=== PATIENT | female | born 1930 | race Caucasian/White ===

== ENCOUNTER 2017-07-08 00:20 | Inpatient (IN) | payer OTHER ==
--- NOTE | 2017-07-08 00:30 | EDPHY ---
H & P Stated Complaint: fall from standing HPI/ROS: HPI The patient presents with a fall which occurred about 45 minutes prior to arrival at her assisted living facility. The patient had an unwitnessed fall, she does not recall the details of it. She does have dementia. She was found by people at the assisted living sitting on the ground. She was complaining of left 5th digit and left hip pain. She was nonambulatory on the scene. She was brought in by the paramedics have placed an IV. She has a most form with her stating that she is comfort measures only. REVIEW OF SYSTEMS Constitutional: No fever, no chills. Eyes: No discharge. ENT: No sore throat. Cardiovascular: No chest pain, no palpitations. Respiratory: No cough, no shortness of breath. Gastrointestinal: No abdominal pain, no vomiting. Genitourinary: No hematuria. Musculoskeletal: No back pain. Skin: No rashes. Neurological: No headache. PMHx: Dementia, GERD, history of syncope Soc Hx: Resides at an assisted living facility PHYSICAL General Appearance: Alert, no distress Eyes: Pupils equal and round no pallor or injection ENT, Mouth: Mucous membranes moist Respiratory: There are no retractions, lungs are clear to auscultation Cardiovascular: Regular rate and rhythm Gastrointestinal: Abdomen is soft and non-tender, no masses, bowel sounds normal Neurological: A&O, moves all extremities Skin: Warm and dry, no rashes Musculoskeletal: Neck is supple non tender Extremities: Left 5th digit is ecchymotic and tender to palpation with no overlying abrasions or lacerations; there is tenderness to her left hip with limited range of motion secondary to pain, the leg is externally rotated and foreshortened Psychiatric: Patient is oriented X 3, there is no agitation Source: Patient Exam Limitations: No limitations - Personal History Current Tetanus/Diphtheria Vaccine: Unsure Current Tetanus Diphtheria and Acellular Pertussis (TDAP): Unsure Tetanus Vaccine Date: 2009 - Medical/Surgical History Hx Asthma: No Hx Chronic Respiratory Disease: No Hx Diabetes: No Hx Cardiac Disease: No Hx Renal Disease: No Hx Cirrhosis: No Hx Alcoholism: No Hx HIV/AIDS: No Hx Splenectomy or Spleen Trauma: No Other PMH: dementia osteoporosis, glaucoma, syncope GERD,. UTI - Social History Smoking Status: Never smoked Constitutional: Initial Vital Signs Temperature (C) 36.3 C 07/08/17 00:21 Heart Rate 85 07/08/17 00:21 Respiratory Rate 16 07/08/17 00:21 Blood Pressure 181/88 H 07/08/17 00:21 O2 Sat (%) 89 L 07/08/17 00:21 O2 Delivery Mode Room Air O2 (L/minute) 2 Allergies/Adverse Reactions: bacitracin [Bacitracin] Allergy (Verified 08/15/14 12:06) Sulfa (Sulfonamide Antibiotics) Allergy (Verified 08/15/14 12:06) Home Medications: Medication Instructions Recorded Timolol 0.5% [TIMOPTIC 0.5% (*)] 1 drops EACHEYE DAILY 08/15/14 Acetaminophen [Tylenol ES 500 mg 1,000 mg PO TID #0 tab 08/19/14 (*)] Enoxaparin [Lovenox 40 MG (*)] 40 mg SC DAILY #10 syr 08/19/14 Magnesium Hydroxide [Milk of 30 ml PO DAILY PRN #0 ml 08/19/14 Magnesia (*)] Melatonin [Melatonin 3 MG (*)] 3 mg PO HS PRN #0 tab 08/19/14 Ondansetron Odt [Zofran Odt 4 mg 4 mg PO Q4 PRN #0 tab 08/19/14 (*)] Pantoprazole Sodium [Protonix 40mg 40 mg PO DAILY #0 tab 08/19/14 (*)] Polyethylene Glycol 3350 [Miralax 17 gm PO DAILY PRN #0 pkt 08/19/14 17 gm (*)] Sennosides/Docusate Sodium 1 - 2 tab PO BID #0 tab 08/19/14 [Senokot-S] oxyCODONE IR [Oxycodone Ir (*)] 2.5 mg PO Q3 PRN #0 tab 08/19/14 Medical Decision Making - Diagnostics Imaging Results: Left hip x-ray demonstrates femoral neck fracture, interpreted by me, radiology interpretation is pending. Left hand x-ray demonstrates 5th middle phalanx fracture involving the PIP, interpreted by me, radiology interpretation is pending. Left wrist x-ray demonstrates no obvious fracture dislocation, interpreted by me , radiology interpretation is pending. Procedures: Fascia iliaca block: A complete neurovascular exam was performed and the patient has 5/5 flexion of her left hip and sensation intact to light touch throughout her leg. The risks and benefits of a nerve block were discussed with the patient and her daughter who is at the bedside and they agree to proceed. Using the linear probe of the ultrasound machine the femoral vessels and femoral nerve relocated approximately 1 cm distal to the left inguinal ligament. Using a 27 gauge needle, a skin wheal was raised using 1% of lidocaine with epinephrine. The area was then prepped and draped in sterile fashion. Using a 22 gauge needle, total of 20 mL of 1% lidocaine without epinephrine was injected approximately 1 cm lateral to the femoral nerve in the fascial layer below the fascia laverne and fascia iliaca. Ultrasound guidance was used throughout the duration of the procedure. The patient tolerated the procedure well. She had no immediate complications. She had improvement in her pain approximately 10 minutes after the procedure. The area was marked with a marking pen. SPLINT Procedure: Splint placement. A ortho glass ulnar gutter and 5th phalanx splint was applied to the left upper extremity by the tech. After application of the splint I returned and re- examined the patient. The splint was adequately immobilizing the joint and distal to the splint the patient's circulation and sensation was intact. Differential Diagnosis: This is an 87-year-old female who is brought in by ambulance from assisted living facility with past medical history of dementia, hypertension, GERD, syncope who is here after a fall which occurred about 45 minutes ago. She does not all the details of this which is likely related to her dementia. She does have a prior history of syncope which caused a right hip fracture. On exam, her left leg is externally rotated and shortened, her left 5th digit is ecchymotic. In the emergency department, x-rays were obtained which did reveal of femoral neck fracture and a 5th middle phalanx fracture. The patient had ongoing wrist pain and thus a splint was placed to immobilize her 5th digit and wrist. Ice packs were placed. She was given Tylenol and fentanyl. She had ongoing pain despite these medications, her saturations remained at approximately 90%. I consulted with Orthopedics and I spoke with Malorie the physician [employer] assistant football coach for Dr. Hampton. We agree that the patient will be admitted to the hospitalist service and be NPO at midnight. We discussed femoral nerve block and she agrees. I have discussed the diagnosis and treatment plan with the patient and her daughter who is at the bedside. Basic labs were checked and were relatively unremarkable. We have ordered a bed for the patient in the hospital. I consulted with the hospitalist Dr. Su and he will admit the patient. - Data Points Laboratory Results: Laboratory Results 07/08/17 02:10 07/08/17 02:10 07/08/17 07/08/17 07/08/17 02:10 02:10 02:10 WBC 9.41 10^3/uL 10^3/uL (3.80-9.50) RBC 3.33 10^6/uL L 10^6/uL (4.18-5.33) Hgb 10.7 g/dL L g/dL (12.6-16.3) Hct 32.6 % L % (38.0-47.0) MCV 97.9 fL fL (81.5-99.8) MCH 32.1 pg pg (27.9-34.1) MCHC 32.8 g/dL g/dL (32.4-36.7) RDW 13.0 % % (11.5-15.2) Plt Count 201 10^3/uL 10^3/uL (150-400) MPV 10.7 fL fL (8.7-11.7) Neut % (Auto) 79.8 % H % (39.3-74.2) Lymph % (Auto) 13.5 % L % (15.0-45.0) [place] % (Auto) 5.0 % % (4.5-13.0) Eos % (Auto) 1.0 % % (0.6-7.6) Baso % (Auto) 0.1 % L % (0.3-1.7) Nucleat RBC Rel Count 0.0 % % (0.0-0.2) Absolute Neuts (auto) 7.51 10^3/uL H 10^3/uL (1.70-6.50) Absolute Lymphs (auto) 1.27 10^3/uL 10^3/uL (1.00-3.00) Absolute Monos (auto) 0.47 10^3/uL 10^3/uL (0.30-0.80) Absolute Eos (auto) 0.09 10^3/uL 10^3/uL (0.03-0.40) Absolute Basos (auto) 0.01 10^3/uL L 10^3/uL (0.02-0.10) Absolute Nucleated RBC 0.00 10^3/uL 10^3/uL (0-0.01) Immature Gran % 0.6 % % (0.0-1.1) Immature Gran # 0.06 10^3/uL 10^3/uL (0.00-0.10) PT 12.7 SEC SEC (12.0-15.0) INR 0.96 (0.83-1.16) APTT 30.9 SEC SEC (23.0-38.0) Sodium 140 mEq/L mEq/L (134-144) Potassium 4.1 mEq/L mEq/L (3.5-5.2) Chloride 108 mEq/L mEq/L (97-110) Carbon Dioxide 25 mEq/l mEq/l (22-31) Anion Gap 7 mEq/L L mEq/L (8-16) BUN 24 mg/dL H mg/dL (7-23) Creatinine 0.7 mg/dL mg/dL (0.6-1.0) Estimated GFR > 60 Glucose 112 mg/dL H mg/dL (70-100) Calcium 9.2 mg/dL mg/dL (8.5-10.4) Total Bilirubin 0.5 mg/dL mg/dL (0.1-1.4) AST 34 IU/L IU/L (14-46) ALT 63 IU/L H IU/L (9-52) Alkaline Phosphatase 99 IU/L IU/L (38-126) Total Protein 6.2 g/dL L g/dL (6.3-8.2) Albumin 3.4 g/dL L g/dL (3.5-5.0) Medications Given: Sodium Chloride (Ns) 1,000 mls @ 100 mls/hr IV CONT ROBERTO Stop: 01/04/18 03:14 Last Admin: 07/08/17 04:50 Dose: 1,000 mls Morphine Sulfate (Morphine) 1 - 2 mg IVP Q1HR PRN PRN Reason: Pain, Severe Unable to Take PO Stop: 07/18/17 03:14 Last Admin: 07/08/17 04:49 Dose: 1 mg Discontinued Medications Acetaminophen (Tylenol) 1,000 mg PO EDNOW ONE Stop: 07/08/17 02:08 Last Admin: 07/08/17 02:33 Dose: 1,000 mg Fentanyl (Sublimaze) 50 mcg IVP EDNOW ONE Stop: 07/08/17 01:37 Last Admin: 07/08/17 01:51 Dose: 50 mcg Departure - Departure Disposition: [facility] Inpatient Acute Condition: Fair
[2017-07-08] MEDS ORDERED: fentaNYL 100 MCG/2 ML INJ IVP ONE (01:36)
[2017-07-08] MEDS ORDERED: ACETAMINOPHEN 500 MG TAB PO ONE (02:07)
[2017-07-08 02:18] LABS: % IMMATURE GRANULYOCYTES 0.6 % (0.0-1.1); ABSOLUTE IMMATURE GRANULOCYTES 0.06 10^3/uL (0.00-0.10); ADD DIFF? NO; ADD MORPH? NO; ADD SCAN? NO; ATYPICAL LYMPHOCYTE FLAG 0 (0-99); FRAGMENT RBC FLAG 0 (0-99); HEMATOCRIT 32.6 % (38.0-47.0); HEMOGLOBIN 10.7 g/dL (12.6-16.3); LEFT SHIFT FLG 0 (0-99); LIPEMIA HEMOLYSIS FLAG 80 (0-99); MEAN CELL HEMOGLOBIN 32.1 pg (27.9-34.1); MEAN CELL HEMOGLOBIN CONCENTR. 32.8 g/dL (32.4-36.7); MEAN CELL VOLUME 97.9 fL (81.5-99.8); MEAN PLATELET VOLUME 10.7 fL (8.7-11.7); PLATELET CLUMPS FLAG 0 (0-99); PLATELET COUNT 201 10^3/uL (150-400); RED BLOOD CELL COUNT 3.33 10^6/uL (4.18-5.33)
[2017-07-08 02:27] LABS: INR 0.96 (0.83-1.16); PROTIME(PATIENT) 12.7 SEC (12.0-15.0)
[2017-07-08 02:28] LABS: APTT 30.9 SEC (23.0-38.0)
[2017-07-08 02:44] LABS: ALANINE AMINOTRANSFERASE 63 IU/L (9-52); ALBUMIN 3.4 g/dL (3.5-5.0); ALKALINE PHOSPHATASE 99 IU/L (38-126); ANION GAP 7 mEq/L (8-16); ASPARTATE AMINOTRANSFERASE 34 IU/L (14-46); BILIRUBIN,TOTAL 0.5 mg/dL (0.1-1.4); CALCIUM 9.2 mg/dL (8.5-10.4); CARBON DIOXIDE 25 mEq/l (22-31); CHLORIDE 108 mEq/L (97-110); CREATININE 0.7 mg/dL (0.6-1.0); GLOMERULAR FILTRATION RATE > 60; GLUCOSE 112 mg/dL (70-100); POTASSIUM 4.1 mEq/L (3.5-5.2); SODIUM 140 mEq/L (134-144); TOTAL PROTEIN 6.2 g/dL (6.3-8.2)
[2017-07-08] MEDS ORDERED: ACETAMINOPHEN 325 MG TAB PO PRN (03:15)
[2017-07-08] MEDS ORDERED: NS 1,000 ML IV SCH (03:15)
[2017-07-08] MEDS ORDERED: ONDANSETRON 4 MG/2 ML VIAL IVP PRN (03:15)
[2017-07-08] MEDS ORDERED: ONDANSETRON DISINTEGRATING 4 MG TAB PO PRN (03:15)
[2017-07-08] MEDS ORDERED: oxyCODONE IR 5 MG TAB PO PRN (03:15)
--- NOTE | 2017-07-08 03:36 | PDGENHP ---
History and Physical - Chief Complaint Fall, hip fracture - History of Present Illness 87 yo F w/ hx of dementia presents from [facility] after a fall. Patient was found by caregiver on the floor unable to recall what happened. She was complaining of L hand pain and L hip pain so was brought to the ED. The patient is A&Ox1 at baseline and has transitioned to comfort measures only. Her daughter was at bedside who confirmed this approach. Imaging in the ED revealed L hand fracture and L hip fracture. Per conversation with the daughter, they are interested in discussing some surgical options as patient is very ambulatory and very much enjoys that part of her day. History Information - Allergies/Home Medication List Allergies/Adverse Reactions: bacitracin [Bacitracin] Allergy (Verified 08/15/14 12:06) Sulfa (Sulfonamide Antibiotics) Allergy (Verified 08/15/14 12:06) Home Medications: Timolol 0.5% [TIMOPTIC 0.5% (*)] 1 drops EACHEYE DAILY 08/15/14 [Last Taken Unknown] I have personally reviewed and updated: family history, medical history - Past Medical History dementia - Surgical History Additional surgical history: R hip replacement - Family History Additional family history: Asked, unable to provide - Social History Smoking Status: Never smoked Review of Systems Review of Systems: ROS: 10pt was reviewed & negative except for what was stated in HPI & below Physical Exam Physical Exam: Temp Pulse Resp BP Pulse Ox 36.3 C 85 18 169/80 H 97 07/08/17 00:21 07/08/17 01:34 07/08/17 01:34 07/08/17 01:34 07/08/17 02:42 Constitutional: no apparent distress, chronically ill appearing Eyes: PERRL, EOMI Ears, Nose, Mouth, Throat: moist mucous membranes, no oral mucosal ulcers Cardiovascular: regular rate and rhythym, no murmur, rub, or gallop, edema (1+ b /l PEGGY) Respiratory: no respiratory distress, no rales or rhonchi Gastrointestinal: normoactive bowel sounds, soft, non-tender abdomen Skin: warm, normal color Musculoskeletal: other (LUE wrapped in MILTON bandage, L hip w/ no obvious deformity) Neurologic: sensation intact bilaterally, other (A&Ox1) Psychiatric: interacting appropriately, not anxious Lab Data & Imaging Review 07/08/17 02:10 07/08/17 02:10 WBC 9.41 10^3/uL (3.80-9.50) 07/08/17 02:10 RBC 3.33 10^6/uL (4.18-5.33) L 07/08/17 02:10 Hgb 10.7 g/dL (12.6-16.3) L 07/08/17 02:10 Hct 32.6 % (38.0-47.0) L 07/08/17 02:10 MCV 97.9 fL (81.5-99.8) 07/08/17 02:10 MCH 32.1 pg (27.9-34.1) 07/08/17 02:10 MCHC 32.8 g/dL (32.4-36.7) 07/08/17 02:10 RDW 13.0 % (11.5-15.2) 07/08/17 02:10 Plt Count 201 10^3/uL (150-400) 07/08/17 02:10 MPV 10.7 fL (8.7-11.7) 07/08/17 02:10 Neut % (Auto) 79.8 % (39.3-74.2) H 07/08/17 02:10 Lymph % (Auto) 13.5 % (15.0-45.0) L 07/08/17 02:10 [place] % (Auto) 5.0 % (4.5-13.0) 07/08/17 02:10 Eos % (Auto) 1.0 % (0.6-7.6) 07/08/17 02:10 Baso % (Auto) 0.1 % (0.3-1.7) L 07/08/17 02:10 Nucleat RBC Rel Count 0.0 % (0.0-0.2) 07/08/17 02:10 Absolute Neuts (auto) 7.51 10^3/uL (1.70-6.50) H 07/08/17 02:10 Absolute Lymphs (auto) 1.27 10^3/uL (1.00-3.00) 07/08/17 02:10 Absolute Monos (auto) 0.47 10^3/uL (0.30-0.80) 07/08/17 02:10 Absolute Eos (auto) 0.09 10^3/uL (0.03-0.40) 07/08/17 02:10 Absolute Basos (auto) 0.01 10^3/uL (0.02-0.10) L 07/08/17 02:10 Absolute Nucleated RBC 0.00 10^3/uL (0-0.01) 07/08/17 02:10 Immature Gran % 0.6 % (0.0-1.1) 07/08/17 02:10 Immature Gran # 0.06 10^3/uL (0.00-0.10) 07/08/17 02:10 PT 12.7 SEC (12.0-15.0) 07/08/17 02:10 INR 0.96 (0.83-1.16) 07/08/17 02:10 APTT 30.9 SEC (23.0-38.0) 07/08/17 02:10 Sodium 140 mEq/L (134-144) 07/08/17 02:10 Potassium 4.1 mEq/L (3.5-5.2) 07/08/17 02:10 Chloride 108 mEq/L (97-110) 07/08/17 02:10 Carbon Dioxide 25 mEq/l (22-31) 07/08/17 02:10 Anion Gap 7 mEq/L (8-16) L 07/08/17 02:10 BUN 24 mg/dL (7-23) H 07/08/17 02:10 Creatinine 0.7 mg/dL (0.6-1.0) 07/08/17 02:10 Estimated GFR > 60 07/08/17 02:10 Glucose 112 mg/dL (70-100) H 07/08/17 02:10 Calcium 9.2 mg/dL (8.5-10.4) 07/08/17 02:10 Total Bilirubin 0.5 mg/dL (0.1-1.4) 07/08/17 02:10 AST 34 IU/L (14-46) 07/08/17 02:10 ALT 63 IU/L (9-52) H 07/08/17 02:10 Alkaline Phosphatase 99 IU/L (38-126) 07/08/17 02:10 Total Protein 6.2 g/dL (6.3-8.2) L 07/08/17 02:10 Albumin 3.4 g/dL (3.5-5.0) L 07/08/17 02:10 Imaging Review: XR w/ L femoral neck fx and L 5th digit fx. Assessment & Plan Assessment: 87 yo F w/ dementia presents after fall and found to have hip fx. Plan: 1. L femoral neck fx - 2/2 likely mechanical fall, patient unable to recall events in setting of advanced dementia. Despite comfort measure only strategy, daughter interested in discussing surgical options to retain ability to ambulate. - S/p nerve block in ED - Oxycodone, morphine for pain control - Orthopedics to see in the morning, maintain NPO 2. GOC - Patient and family have elected for comfort measures only, will not address other medical problems at this time. Diet - NPO Code - DNR Ppx - SCDs Dispo - Admit to observation status
[2017-07-08 08:22] LABS: % IMMATURE GRANULYOCYTES 0.4 % (0.0-1.1); ABSOLUTE IMMATURE GRANULOCYTES 0.06 10^3/uL (0.00-0.10); ADD DIFF? NO; ADD MORPH? NO; ADD SCAN? NO; ATYPICAL LYMPHOCYTE FLAG 0 (0-99); FRAGMENT RBC FLAG 0 (0-99); HEMATOCRIT 34.2 % (38.0-47.0); HEMOGLOBIN 11.2 g/dL (12.6-16.3); LEFT SHIFT FLG 0 (0-99); LIPEMIA HEMOLYSIS FLAG 80 (0-99); MEAN CELL HEMOGLOBIN 31.7 pg (27.9-34.1); MEAN CELL HEMOGLOBIN CONCENTR. 32.7 g/dL (32.4-36.7); MEAN CELL VOLUME 96.9 fL (81.5-99.8); MEAN PLATELET VOLUME 10.9 fL (8.7-11.7); PLATELET CLUMPS FLAG 0 (0-99); PLATELET COUNT 191 10^3/uL (150-400); RED BLOOD CELL COUNT 3.53 10^6/uL (4.18-5.33)
[2017-07-08 08:43] LABS: ANION GAP 9 mEq/L (8-16); CALCIUM 9.2 mg/dL (8.5-10.4); CARBON DIOXIDE 25 mEq/l (22-31); CHLORIDE 105 mEq/L (97-110); CREATININE 0.6 mg/dL (0.6-1.0); GLOMERULAR FILTRATION RATE > 60; GLUCOSE 105 mg/dL (70-100); POTASSIUM 3.9 mEq/L (3.5-5.2); SODIUM 139 mEq/L (134-144)
[2017-07-08] MEDS ORDERED: IOPAMIDOL (ISOVUE-300) 100 ML BTL ONE (11:04)
--- NOTE | 2017-07-08 11:32 | GCON ---
[f rep st] CONSULTATION DATE OF CONSULTATION: 07/08/2017 CHIEF COMPLAINT: Left hip pain. HISTORY OF PRESENT ILLNESS: This is an 87-year-old female who presents to emergency department on Oc 2016, for complaint of left hand pain and left hip pain. Patient had an unwitnessed fall a t her assisted living facility. Patient is currently on comfort measures only. Medical power of att orneys are the patient 2 daughters. PAST MEDICAL HISTORY: Dementia. PAST SURGICAL HISTORY: Right hip replacement, status post fracture. CURRENT MEDICATIONS: Timolol eye drops. ALLERGIES: To medications bacitracin and sulfa. REVIEW OF SYSTEMS: No other complaints after a 10-point review. SOCIAL HISTORY: Patient denies tobacco use. Patient currently resides at [facility]. She has 2 daughters who are her medical power of attorneys. PHYSICAL EXAMINATION: GENERAL: The patient is a frail woman in no acute distress. HEENT: Head is n ormocephalic, atraumatic. Ears, nose, and throat appear normal. Eye motion is intact. NECK: Suppl e with full range of motion. Trachea is midline. LUNGS: Respirations are nonlabored. MUSCULOSKELE QUIQUE: Skin is intact over the left lower extremity without any erythema, ecchymosis, calor, or edema. Patient has tenderness to palpation of the left hip and groin area. Positive log roll. Patient gaspar s 5/5 dorsiflexion and plantar flexion of the feet bilaterally. Splint is in place on the left upper extremity. Patient is able to wiggle her fingers. Radial pulse 2+ on the right side with brisk cap illary refill. Dorsalis pedis pulse 2+ bilaterally with brisk capillary refill. Calves are soft, no ntender. Negative Homans. SKIN: Please see dictation above. Otherwise, no erythema, ecchymosis, c alor, or edema. There are no abrasions. NEURO: Sensation is intact throughout. Patient is alert a nd oriented to self. PSYCHIATRIC: Affect is normal. RADIOGRAPHIC DATA: X-rays are reviewed from the emergency department, which show a femoral neck frac ture of the left hip, and a volar plate fracture of the left 5th middle phalanx. ASSESSMENT AND PLAN: Left femoral neck fracture and left 5th small finger fracture. Discussed with patient and her daughters that for the hip fracture, we recommend a bipolar hemiarthroplasty versus a total hip arthroplasty. Risks, benefits, and alternatives were discussed. The daughters have decid ed to proceed with surgery, which has been scheduled for later today. July 08, 2017. An informed consent was obtained. Discussed with daughters that we will treat the small finger fracture nonoper atively in the splint. Patient will likely need discharge to Medicare for additional assistance. Erick salmon is to remain nothing by mouth until after surgery. She is to remain on bed rest. Continue jorden n control. Patient will follow up in the office with Dr. Hampton postoperatively 10-14 days after surg amanda for reevaluation. Patient and her daughters understand and agreed to the treatment plan today, a nd all their questions have been answered. The patient was seen and examined with Dr. Hampotn at the [facility]. He agrees with the treatment plan today. /[id number]/MODL
[2017-07-08] MEDS ORDERED: TRANEXAMIC ACID 1,000 MG in NS 100 ML IV ONE (12:58)
--- NOTE | 2017-07-08 13:26 | HOSPPROG ---
Hospitalist Progress Note Assessment/Plan: First encounter with this patient. Records reviewed. 87 yo female with dementia admitted following unwitnessed fall at her Assisted living facility with subsequent left hip fracture. Daughters are POA. Ortho is planning on surgical management today. No hx of CV disease. Denies HTN, CAD, Afib. No active tobacco use. Not on Anticoagulation OK for surgery today NPO Pain mgt #Left Hip Fracture #S/p Fall, possibly mechanical. Unwitnessed #Dementia #Acute Pain syndrome, will adjust medications Subjective: c/o left hip pain. otherwise no complaints. No CP or SOB Objective: Vital Signs Temp Pulse Resp BP Pulse Ox 36.9 C 86 16 164/83 H 97 07/08/17 11:41 07/08/17 11:41 07/08/17 11:41 07/08/17 11:41 07/08/17 11:41 Laboratory Results 07/08/17 08:11 07/08/17 08:11 PT 12.7 SEC (12.0-15.0) 07/08/17 02:10 INR 0.96 (0.83-1.16) 07/08/17 02:10 - Physical Exam Constitutional: no apparent distress Eyes: PERRL, EOMI Ears, Nose, Mouth, Throat: moist mucous membranes, hearing normal Cardiovascular: regular rate and rhythym, No edema Respiratory: no respiratory distress, no rales or rhonchi, clear to auscultation Gastrointestinal: normoactive bowel sounds, soft, non-tender abdomen Skin: warm Neurologic: AAOx3 Psychiatric: interacting appropriately, encephalopathic ICD10 Worksheet Patient Problems: Problems Problem Status Onset Clavicular fracture Acute Closed subcapital fracture of femur Acute
[2017-07-08] MEDS ORDERED: ceFAZolin 2 GM/DEXTROSE 100 ML IV ONE (14:00)
[2017-07-08] MEDS ORDERED: ROPIVACAINE 0.2% 80 MG, EPINEPHrine 0.2 MG, KETOROLAC TROMETHAMINE 30 MG in BAG 0 ML IU ONE (14:00)
[2017-07-08] MEDS ORDERED: LR 1,000 ML IV ONE (15:01)
[2017-07-08] MEDS ORDERED: POLYMYXIN B SULFATE 500,000 UNIT/10 ML SYR IRR ONE (15:17)
[2017-07-08] MEDS ORDERED: fentaNYL 100 MCG/2 ML INJ ONE (15:51)
[2017-07-08] MEDS ORDERED: KETAMINE 100 MG/10 ML SYR ONE (15:51)
--- NOTE | 2017-07-08 16:09 | SOAPPROG ---
SOAP Progress Note Assessment/Plan: Assessment/Plan: Left femoral neck fracture s/p left hip hemiarthroplasty, performed by Dr. Hampton, POD#0 -Cont PT/OT, posterior hip precautions -Cont current pain regimen, encourage PO as tolerated -Cont post op abx prophylaxis as ordered -Cont SCDs and TEDs for VTE mechanical prophylaxis -Will start Lovenox for VTE chemoprophylaxis Left 5th finger PII fracture -Non operative treatment -Pt will remain NWB of the LUE, cont splint use at all times -No sig lifting, twisting, pulling, pushing or carrying with affected finger -Pt will need platform walker for ambulation 07/08/17 16:07 Subjective: Pt transported to PACU in stable condition Objective: Vital Signs Temp Pulse Resp BP Pulse Ox 37.2 C 89 16 153/83 H 93 07/08/17 15:26 07/08/17 15:26 07/08/17 14:20 07/08/17 15:26 07/08/17 15:26 Laboratory Results 07/08/17 08:11 07/08/17 08:11 PT 12.7 SEC (12.0-15.0) 07/08/17 02:10 INR 0.96 (0.83-1.16) 07/08/17 02:10 ICD10 Worksheet Patient Problems: Problems Problem Status Onset Clavicular fracture Acute Closed subcapital fracture of femur Acute
--- NOTE | 2017-07-08 16:14 | ASMTCMCOM ---
CM Note CM Note Notes: Patient admitted for multiple fractures after having an unwitnessed fall at her Assisted Living facility ([facility]). She was taken to the OR today for hip surgery. Per chart, patient has two daughters; they were with her in the OR today. Per PRATIK Lafleur at [facility], patient does have dementia (is AO x 1, to self only) but does not wander or necessitate a memory care unit. [facility] will likely require that patient go to SNF rehab before returning. CM will coordinate d/c with patient's daughters. Date Signed: 07/08/2017 04:13 PM Electronically Signed By:Louann Greenfield RN
--- NOTE | 2017-07-08 16:17 | PDMN ---
Medical Necessity Medical necessity: change to IP/no obs hrs for change of status DOA; est los >2 mn for L hip fx r/t fall, admit for surgical repair; comorbid advanced age & dementia; per progress note & order 07/08/17
[2017-07-08] MEDS ORDERED: PROPOFOL/EMULSION 500 MG/50 ML BOTTLE IV ONE (16:34)
[2017-07-08] MEDS ORDERED: PHENYLEPHRINE HCL 100 MCG/ML SYR ONE (17:02)
[2017-07-08] MEDS: BUPIVACAINE 0.5% 30 ML SDV ONE ×2 (17:10→17:32)
[2017-07-08] MEDS ORDERED: ALBUTEROL 3 ML DEYVIAL IH PRN (17:31)
[2017-07-08] MEDS ORDERED: NALOXONE HCL 0.4 MG/ML INJ IVP PRN (17:31)
[2017-07-08] MEDS ORDERED: LABETALOL HCL 50 MG/10 ML SYR IVP PRN (17:31)
[2017-07-08] MEDS ORDERED: fentaNYL 100 MCG/2 ML INJ IVP PRN (17:31)
[2017-07-08] MEDS ORDERED: CYCLOBENZAPRINE 10 MG TAB PO PRN (17:51)
[2017-07-08] MEDS ORDERED: BISACODYL 10 MG SUPP PR PRN (17:51)
[2017-07-08] MEDS ORDERED: METOCLOPRAMIDE 10 MG/2 ML VIAL IVP PRN (17:51)
[2017-07-08] MEDS ORDERED: diphenhydrAMINE 25 MG CAP PO PRN (17:51)
[2017-07-08] MEDS ORDERED: POLYETHYLENE GLYCOL 3350 17 GM PKT PO PRN (17:51)
[2017-07-08] MEDS ORDERED: PROMETHAZINE HCL 25 MG SUPPR PR PRN (17:51)
[2017-07-08] MEDS ORDERED: DIPHENOXYLATE/ATROPINE LOMOTIL 1 TAB PO PRN (17:51)
[2017-07-08] MEDS ORDERED: LACTULOSE 20 GM/30 ML UDCUP PO PRN (17:51)
[2017-07-08] MEDS ORDERED: MAGNESIUM HYDROXIDE 30 ML UDCUP PO PRN (17:51)
[2017-07-08] MEDS ORDERED: PROMETHAZINE HCL 25 MG/ML INJ IVP PRN (17:51)
[2017-07-08] MEDS ORDERED: LR 1,000 ML IV SCH (18:00)
--- NOTE | 2017-07-08 18:03 | POSTOPPROG ---
Post Op Note Date of Operation: 07/08/17 Surgeon: Mitchell Hampton Forestry Contractor: DIPAK Marquez Anesthesia: Spinal Pre-op Diagnosis: left femoral neck fracture Post-op Diagnosis: left femoral neck fracture Procedure: left hip hemiarthroplasty Findings: As above, please see full dictation for details. Inf/Abcess present in the surg proc area at time of surgery?: No Depth: Deep Incisional (Fascial) Complications: No complications.
--- NOTE | 2017-07-08 19:30 | POSTANESTH ---
Post Anesthetic Evaluation Cardiovascular Status: Normal, Stable Respiratory Status: Normal, Stable Level of Consciousness/Mental Status: Other, See Comment Pain Control: Adequate, Prn Tx Ordered Nausea/Vomiting Control: Adequate, Prn Tx Ordered Complications Possibly Related to Anesthesia: None Noted (ms SIMILAR TO PRE-OP)
[2017-07-08] MEDS: ACETAMINOPHEN 325 MG TAB PO SCH (21:09)
[2017-07-08] MEDS: SENNOSIDES/DOCUSATE SODIUM TAB PO SCH (21:15)
[2017-07-09] MEDS: ACETAMINOPHEN 325 MG TAB PO SCH ×6 (00:12→23:13)
[2017-07-09] MEDS: SENNOSIDES/DOCUSATE SODIUM TAB PO SCH ×4 (00:14→23:13)
[2017-07-09] MEDS: ceFAZolin 2 GM/DEXTROSE 100 ML IV SCH ×2 (00:15→07:55)
--- NOTE | 2017-07-09 04:35 | GOP ---
[f rep st] OPERATIVE REPORT DATE OF OPERATION: 07/08/2017 SURGEON: Mitchell Hampton MD [employer] OFFICER: Lindy Marquez PA-C. ANESTHESIA: Spinal. PREOPERATIVE DIAGNOSIS: Left femoral neck fracture (subcapital). POSTOPERATIVE DIAGNOSIS: Left femoral neck fracture (subcapital). PROCEDURE PERFORMED: Left bipolar hip arthroplasty with Mary Accolade system. FINDINGS: DESCRIPTION OF PROCEDURE: Patient taken to the operating room, administered spinal anesthesia, place d in the right lateral decubitus position. Had her left hip prepped and draped in normal sterile fas hion. A posterolateral incision was made through dermal subcutaneous tissues. The bleeders were cau terized. The IT band was split distally and extended up over the greater trochanter into the gluteal fascia. The piriformis was palpated and dissected directly above it underneath the gluteus minimus. Retractors were put in position. Piriformis and external rotators were then taken down. The fract ure was entered when we incised the hip capsule. The hip capsule was reflected and the femoral head was found to be out of position. Thorough lavage was performed. The head was labored out with a ten aculum. The neck cut was freshened up approximately 0.5 cm above the lesser trochanter. The acetabu lum was palpated and visualized. We felt that she had enough cartilage to do a bipolar rather than a total hip. The starting reamer was placed manually down through the shaft. We then broached beginn ing with a size 3 and extended up to a size 6. Size 6 Accolate 132 degree neck angle hip stem was th en impacted into position. The stem was trialed with the trial head in position. We elected to use a 47 mm outer diameter, 26 mm inner diameter bipolar component. The 26 mm inner diameter ball was im pacted into the head. The 47 mm outer diameter, 26 mm inner diameter ball was then snapped onto the bipolar head. Thorough lavage was performed. The hip was reduced. The hip was put through range of motion, felt to be stable. The hip capsule and external rotators were repaired through drill holes in the greater trochanter. The IT band was repaired with interrupted #1 and 0 Vicryl sutures, follow ed by closure of the subcutaneous tissue with a 2-0 Vicryl suture, followed by closure of the dermis with ke. A sterile compression dressing applied followed by an abduction pillow. The patient t olerated procedure well, was transferred back to recovery in stable condition. COMPLICATIONS: None. /[id number]/MODL
[2017-07-09] MEDS: ENOXAPARIN 40 MG/0.4 ML SYR SC SCH (07:54)
[2017-07-09] MEDS: traMADol 50 MG TAB PO PRN (07:54)
[2017-07-09] MEDS: HALOPERIDOL LACT 5 MG/ML INJ IVP PRN (10:39)
[2017-07-09] MEDS: TIMOLOL 0.5% 15 ML OPHT.BTL EACHEYE SCH (10:44)
--- NOTE | 2017-07-09 14:45 | ASMTCMCOM ---
CM Note CM Note Notes: Pt in from [facility]. Family preference is [facility]. [facility] accepts pt for d/c when medically stable. Date Signed: 07/09/2017 02:45 PM Electronically Signed By:MELODY Johnson
--- NOTE | 2017-07-09 14:47 | HOSPPROG ---
Hospitalist Progress Note Assessment/Plan: 87 yo female with dementia admitted following unwitnessed fall at her Assisted living facility with subsequent left hip fracture. Had left hip hemiarthoplasty on 07/08, now on POD @ 1 #Left Hip Fracture, s/p repair -post op care per ortho -Good oral intake, I talley top IVF #S/p Fall, possibly mechanical. Unwitnessed -cont to work with PT/OT #Dementia and acute encephalopathy: Mostly this morning, refused blood draws, etc. Now better. Avoid centrally acting meds. Will stop Flexeril. Cautious use of narcotics #Weakness and Deconditioning: PT/OT, will need rehab #DVT proph: per Ortho, on Lovenox Subjective: agitated and confused this morning, now doing better. Pleasant. No CP or SOB. NO N/V. Objective: Vital Signs Temp Pulse Resp BP Pulse Ox 36.8 C 91 12 125/67 H 90 L 07/09/17 11:49 07/09/17 11:49 07/09/17 11:49 07/09/17 11:49 07/09/17 11:49 07/08/17 07/09/17 07/10/17 05:59 05:59 05:59 Intake Total 600 Output Total 650 Balance 600 -650 PT 12.7 SEC (12.0-15.0) 07/08/17 02:10 INR 0.96 (0.83-1.16) 07/08/17 02:10 - Physical Exam Constitutional: no apparent distress, appears nourished Eyes: PERRL, EOMI Ears, Nose, Mouth, Throat: moist mucous membranes, ears appear normal Cardiovascular: regular rate and rhythym, no murmur, rub, or gallop, No edema Respiratory: reduced air movement Gastrointestinal: normoactive bowel sounds, soft, non-tender abdomen Skin: warm Neurologic: AAOx3 Psychiatric: interacting appropriately, not anxious, not encephalopathic ICD10 Worksheet Patient Problems: Problems Problem Status Onset Clavicular fracture Acute Closed subcapital fracture of femur Acute
--- NOTE | 2017-07-09 15:03 | SOAPPROG ---
SOAP Progress Note Assessment/Plan: Assessment:s/p left hip hemiarthroplasty, POD#1. Continue PT/OT Posterior hip precautions continue current pain management, encourage p.o. SCD/EVELINE for mechanical chemoprophylaxis TDWB LLE Continue warfarin as directed Pt. pulled off the splint for her 5th finger fracture and refuses to have it put back on. 4th and 5th fingers jeff taped in the meantime. S: Pt. states that her pain is controlled, no CP, JUNE, SOB, calf swelling or tenderness. O: Pt. appears to be comfortable in no acute distress. Calves NTTP, no swelling , redness or warmth. Pt. is DNVI. Plan: 07/09/17 15:00 Objective: Vital Signs Temp Pulse Resp BP Pulse Ox 36.8 C 91 12 125/67 H 90 L 07/09/17 11:49 07/09/17 11:49 07/09/17 11:49 07/09/17 11:49 07/09/17 11:49 07/08/17 07/09/17 07/10/17 05:59 05:59 05:59 Intake Total 600 Output Total 650 Balance 600 -650 PT 12.7 SEC (12.0-15.0) 07/08/17 02:10 INR 0.96 (0.83-1.16) 07/08/17 02:10 ICD10 Worksheet Patient Problems: Problems Problem Status Onset Clavicular fracture Acute Closed subcapital fracture of femur Acute
[2017-07-10] MEDS: ACETAMINOPHEN 325 MG TAB PO SCH ×3 (06:39→18:00)
--- NOTE | 2017-07-10 08:53 | SOAPPROG ---
SOAP Progress Note Assessment/Plan: Assessment/Plan: s/p L hip hemiarthroplasty POD#2 - Continue pain management - Continue PT/OT - SCDs/TEDs for mechanical prophylaxis - Lovenox daily for VTE chemoprophylaxis - Continue hip precautions - Dressing change today - Ortho stable, will need discharge to SNF 07/10/17 08:51 07/10/17 08:53 Subjective: Per nurse report pt has been refusing blood draws. Pt denies any pain. Objective: Vital Signs Temp Pulse Resp BP Pulse Ox 36.5 C 98 17 138/78 H 95 07/10/17 00:00 07/10/17 00:00 07/10/17 00:00 07/10/17 00:00 07/10/17 00:00 07/09/17 07/10/17 07/11/17 05:59 05:59 05:59 Intake Total 600 Output Total 650 Balance 600 -650 PT 12.7 SEC (12.0-15.0) 07/08/17 02:10 INR 0.96 (0.83-1.16) 07/08/17 02:10 Physical Exam - Physical Exam General Appearance: alert, no apparent distress Cardiac/Chest: normal peripheral pulses Skin: normal color, warm/dry, other (incision site c/d/i) Extremities: normal inspection, normal capillary refill, No pedal edema, No calf tenderness, No swelling, No Zackery's sign Neuro/Psych: no motor/sensory deficits, alert, disoriented to place, disoriented to time ICD10 Worksheet Patient Problems: Problems Problem Status Onset Clavicular fracture Acute Closed subcapital fracture of femur Acute
[2017-07-10] MEDS: ENOXAPARIN 40 MG/0.4 ML SYR SC SCH (09:19)
[2017-07-10] MEDS: HALOPERIDOL LACT 5 MG/ML INJ IVP PRN (09:19)
[2017-07-10] MEDS: SENNOSIDES/DOCUSATE SODIUM TAB PO SCH ×2 (09:21→22:41)
[2017-07-10] MEDS: TIMOLOL 0.5% 15 ML OPHT.BTL EACHEYE SCH (09:21)
[2017-07-10] MEDS: traMADol 50 MG TAB PO PRN (09:22)
[2017-07-10 13:06] LABS: % IMMATURE GRANULYOCYTES 0.8 % (0.0-1.1); ADD DIFF? NO; ADD MORPH? NO; ADD SCAN? NO; ATYPICAL LYMPHOCYTE FLAG 0 (0-99); FRAGMENT RBC FLAG 0 (0-99); HEMATOCRIT 32.3 % (38.0-47.0); HEMOGLOBIN 10.9 g/dL (12.6-16.3); LEFT SHIFT FLG 0 (0-99); LIPEMIA HEMOLYSIS FLAG 80 (0-99); MEAN CELL HEMOGLOBIN 32.3 pg (27.9-34.1); MEAN CELL HEMOGLOBIN CONCENTR. 33.7 g/dL (32.4-36.7); MEAN CELL VOLUME 95.8 fL (81.5-99.8); MEAN PLATELET VOLUME 10.5 fL (8.7-11.7); PLATELET CLUMPS FLAG 0 (0-99); PLATELET COUNT 157 10^3/uL (150-400); RED BLOOD CELL COUNT 3.37 10^6/uL (4.18-5.33)
[2017-07-10 13:20] LABS: ANION GAP 8 mEq/L (8-16); CARBON DIOXIDE 23 mEq/l (22-31); CHLORIDE 104 mEq/L (97-110); CREATININE 0.5 mg/dL (0.6-1.0); GLUCOSE 102 mg/dL (70-100); POTASSIUM 3.8 mEq/L (3.5-5.2); SODIUM 135 mEq/L (134-144)
[2017-07-10 13:21] LABS: GLOMERULAR FILTRATION RATE > 60
--- NOTE | 2017-07-10 13:38 | HOSPPROG ---
Hospitalist Progress Note Assessment/Plan: 87 yo female with dementia admitted following unwitnessed fall at her Assisted living facility with subsequent left hip fracture. Had left hip hemiarthoplasty on 07/08, now on POD @ 2. Has agitation intermittently but otherwise doing fine. Plan is for discharge tomorrow to [facility]. #Left Hip Fracture, s/p repair -post op care per ortho #S/p Fall, possibly mechanical. Unwitnessed -cont to work with PT/OT #Dementia and acute encephalopathy: Mostly this morning, refused blood draws, etc. Now better. Avoid centrally acting meds. no Flexeril. Cautious use of narcotics (has not needed any) #Weakness and Deconditioning: PT/OT, will need rehab #DVT proph: per Ortho, on Lovenox Subjective: confused. Forgets that she had hip surgery. No CP or SOB. NO N/V Objective: Vital Signs Temp Pulse Resp BP Pulse Ox 36.5 C 89 20 149/88 H 95 07/10/17 00:00 07/10/17 09:40 07/10/17 09:40 07/10/17 09:40 07/10/17 09:40 Laboratory Results 07/10/17 12:52 07/10/17 12:52 07/09/17 07/10/17 07/11/17 05:59 05:59 05:59 Intake Total 600 Output Total 650 575 Balance 600 -650 -575 PT 12.7 SEC (12.0-15.0) 07/08/17 02:10 INR 0.96 (0.83-1.16) 07/08/17 02:10 - Physical Exam Constitutional: no apparent distress Eyes: PERRL, EOMI Ears, Nose, Mouth, Throat: moist mucous membranes, hearing normal Cardiovascular: regular rate and rhythym, No edema Respiratory: no respiratory distress, no rales or rhonchi, clear to auscultation Gastrointestinal: normoactive bowel sounds, soft, non-tender abdomen Skin: warm Neurologic: No AAOx3 Psychiatric: interacting appropriately, not anxious, encephalopathic, poor insight, poor judgement, poor memory, No not encephalopathic, No thought process linear ICD10 Worksheet Patient Problems: Problems Problem Status Onset Clavicular fracture Acute Closed subcapital fracture of femur Acute
--- NOTE | 2017-07-10 16:15 | ASMTCMCOM ---
CM Note CM Note Notes: Pt will d/c to [facility] tomorrow. Pt [facility] [phone] would like a call when transport time is established Date Signed: 07/10/2017 04:14 PM Electronically Signed By:MELODY Johnson
[2017-07-10] MEDS ORDERED: CANN-EASE 2 GM TUBE TP PRN (17:40)
[2017-07-11] MEDS: ACETAMINOPHEN 325 MG TAB PO SCH ×5 (00:43→18:29)
[2017-07-11 05:25] LABS: % IMMATURE GRANULYOCYTES 0.5 % (0.0-1.1); ABSOLUTE IMMATURE GRANULOCYTES 0.05 10^3/uL (0.00-0.10); ADD DIFF? NO; ADD MORPH? NO; ADD SCAN? NO; ATYPICAL LYMPHOCYTE FLAG 0 (0-99); FRAGMENT RBC FLAG 0 (0-99); HEMATOCRIT 29.9 % (38.0-47.0); HEMOGLOBIN 9.9 g/dL (12.6-16.3); LEFT SHIFT FLG 0 (0-99); LIPEMIA HEMOLYSIS FLAG 80 (0-99); MEAN CELL HEMOGLOBIN 31.6 pg (27.9-34.1); MEAN CELL HEMOGLOBIN CONCENTR. 33.1 g/dL (32.4-36.7); MEAN CELL VOLUME 95.5 fL (81.5-99.8); MEAN PLATELET VOLUME 11.2 fL (8.7-11.7); PLATELET CLUMPS FLAG 0 (0-99); PLATELET COUNT 157 10^3/uL (150-400); RED BLOOD CELL COUNT 3.13 10^6/uL (4.18-5.33); RED CELL DISTRIBUTION WIDTH 13.2 % (11.5-15.2)
[2017-07-11] MEDS: ENOXAPARIN 40 MG/0.4 ML SYR SC SCH (08:10)
[2017-07-11] MEDS: SENNOSIDES/DOCUSATE SODIUM TAB PO SCH ×2 (08:10→20:35)
[2017-07-11] MEDS: TIMOLOL 0.5% 15 ML OPHT.BTL EACHEYE SCH (08:20)
[2017-07-11] MEDS: HALOPERIDOL LACT 5 MG/ML INJ IVP PRN ×3 (11:45→17:42)
--- NOTE | 2017-07-11 12:17 | SOAPPROG ---
SOAP Progress Note Assessment/Plan: Assessment/Plan: s/p L hip hemiarthroplasty POD#3 - Continue pain management - Continue PT/OT - SCDs/TEDs for mechanical prophylaxis - Lovenox daily for VTE chemoprophylaxis - Continue hip precautions - Ortho stable, okay for discharge to [facility] 07/10/17 08:51 07/10/17 08:53 07/11/17 12:15 Subjective: Pt states she is doing okay, and not in any pain. Objective: Vital Signs Temp Pulse Resp BP Pulse Ox 36.5 C 97 14 143/75 H 93 07/11/17 08:00 07/11/17 08:00 07/11/17 08:00 07/11/17 08:00 07/11/17 08:00 Laboratory Results 07/11/17 04:45 07/10/17 12:52 07/10/17 07/11/17 07/12/17 05:59 05:59 05:59 Intake Total 125 Output Total 650 1425 Balance -650 -1300 PT 12.7 SEC (12.0-15.0) 07/08/17 02:10 INR 0.96 (0.83-1.16) 07/08/17 02:10 Physical Exam - Physical Exam General Appearance: alert, no apparent distress, other (Pt is sitting up in the chair eating lunch) Cardiac/Chest: normal peripheral pulses Skin: normal color, warm/dry, other (Incision site c/d/i) Extremities: normal inspection, normal capillary refill, No pedal edema, No calf tenderness, No swelling, No Zackery's sign Neuro/Psych: no motor/sensory deficits, alert, disoriented to place, disoriented to time ICD10 Worksheet Patient Problems: Problems Problem Status Onset Clavicular fracture Acute Closed subcapital fracture of femur Acute
[2017-07-11] MEDS: traMADol 50 MG TAB PO PRN (13:11)
--- NOTE | 2017-07-11 14:06 | PDDCSUM ---
Discharge Summary Discharge Summary: 87 yo female with dementia admitted following unwitnessed fall at her Assisted living facility with subsequent left hip fracture. Had left hip hemiarthoplasty on 07/08, now on POD # 3. Has agitation intermittently but otherwise doing fine. Plan is for discharge to [facility]. Discharge Diagnosis: #Left Hip Fracture, s/p repair -post op care per ortho #S/p Fall, possibly mechanical. Unwitnessed -cont to work with PT/OT #Dementia and acute encephalopathy: Mostly this morning, refused blood draws, etc. Now better. Avoid centrally acting meds. no Flexeril. Cautious use of narcotics (has not needed any) #Weakness and Deconditioning: PT/OT, will need rehab #DVT proph: per Ortho, on Lovenox Exam: NAD PLEASANTLY CONFUSED RRR CTA B S/NT/ND NO EDEMA DISCHARGE MEDS: SEE MED REC TOTAL CARE TIME SPENT ON DISCHARGE: 35 MINS
--- NOTE | 2017-07-11 14:08 | PDIAF ---
- Diagnosis Diagnosis: S/P HIP FRACTURE, Rehab at [facility] Code Status: Do Not Resuscitate - Medication Management Discharge Medications: Medications to Continue on Transfer Timolol 0.5% [TIMOPTIC 0.5% (*)] 1 drops EACHEYE DAILY 08/15/14 [Last Taken 07/14] Acetaminophen [Tylenol ES 500 mg (*)] 1,000 mg PO Q6HRS PRN 07/08/17 [Last Taken Unknown] Enoxaparin [Lovenox 40 MG (*)] 40 mg SC DAILY #0 syr 07/11/17 [Last Taken Unknown] Haloperidol Lactate [Haldol Injection] 2 - 4 mg IVP Q4HRS PRN #0 inj 07/11/17 [ Last Taken Unknown] Polyethylene Glycol 3350 [Miralax 17 gm (*)] 17 gm PO DAILY PRN pkt 07/11/17 [ Last Taken Unknown] Sennosides/Docusate Sodium [Senokot-S] 1 - 2 tab PO BID tab 07/11/17 [Last Taken Unknown] traMADol [Ultram 50 mg (*)] 50 mg PO Q6HRS PRN tab 07/11/17 [Last Taken Unknown ] Discharge Medications: Refer to the Discharge Home Medication list for PRN reason. - Orders Services needed: Physical Therapy, Occupational Therapy Diet Recommendation: no restrictions on diet Diet Texture: Regular Texture Diet - Follow Up Care Current Providers and Referrals: Patient,NotPresent [Unknown] - As per Instructions Mitchell Hampton MD [Medical Doctor] - (Will need follow-up 10-14 days post- operatively. Call the office as soon as possible to schedule your post- operative appointment. Call sooner with any questions or concerns)
--- NOTE | 2017-07-11 17:21 | ASMTCMCOM ---
CM Note CM Note Notes: MD entered d/c order for Pt. today. Plan is for Pt. to go to [facility]. [facility] at ready for Pt. D/c paperwork sent via [employer]. RN working w/ Pt. to get her to urinate since had to pull krause in pm. RN called report to [facility]. RN will let [facility] know if Pt. cannot be picked up as scheduled at 18:00. CM to follow if Pt. still here in am. Date Signed: 07/11/2017 05:21 PM Electronically Signed By:Candida Tran LCSW
[2017-07-12] MEDS: ACETAMINOPHEN 325 MG TAB PO SCH ×3 (00:02→09:14)
[2017-07-12 07:21] VITALS: BP 159/80; PULSE 107; RESP 20; TEMP 98.4; O2SAT 95
[2017-07-12] MEDS: SENNOSIDES/DOCUSATE SODIUM TAB PO SCH (09:15)
[2017-07-12] MEDS: TIMOLOL 0.5% 15 ML OPHT.BTL EACHEYE SCH (09:15)
[2017-07-12] MEDS: ENOXAPARIN 40 MG/0.4 ML SYR SC SCH (09:15)
== END 2017-07-12 11:23 | DRG 470 ==
LOC: EDUNIT# → F3E 04:30 → OBSVTOIN 15:51 → F3N 16:30
PROVIDERS: ADMIT Student in an Organized Health Care Education/Training Program; ATTEND Student in an Organized Health Care Education/Training Program
PROC: 0SRB0JZ Replacement of Left Hip Joint with Synthetic Substitute, Open Approach (ICD-10-PCS; principal; 2017-07-08 15:15)
DX: S72.002A Fracture of unspecified part of neck of left femur, initial encounter for closed fracture (principal); S42.001A Fracture of unspecified part of right clavicle, initial encounter for closed fracture; S62.653A Nondisplaced fracture of middle phalanx of left middle finger, initial encounter for closed fracture; F03.90 Unspecified dementia, unspecified severity, without behavioral disturbance, psychotic disturbance, mood disturbance, and anxiety; W19.XXXA Unspecified fall, initial encounter; I10 Essential (primary) hypertension; K21.9 Gastro-esophageal reflux disease without esophagitis; Z96.641 Presence of right artificial hip joint
CPT/HCPCS: 97116-GP; 97162-GP; 97166-GO; 97530-GO; 97535-GO; G8978-GP-CL; G8979-GP-CJ; G8987-GO-CL; G8987-GO-CM; G8988-GO-CL; G8989-GO-CL; J0171; J0690; J1650; J1885; J2370; J2704; J2795; J3010; Q9967